=== PATIENT | male | born 1940 | race Caucasian/White ===

== ENCOUNTER → 2024-03-02 14:49 | Outpatient (REF) | payer MEDICARE, BC, SELFPAY | LOC: RCS 14:49 | PROVIDERS: ATTENDING PHYSICIAN Internal Medicine Cardiovascular Disease; FAMILY PHYSICIAN Internal Medicine; OTHER PHYSICIAN Internal Medicine Clinical Cardiac Electrophysiology | DX: I34.0 Nonrheumatic mitral (valve) insufficiency (principal) | CPT/HCPCS: 93306 ==

== ENCOUNTER → 2024-03-23 11:01 | Outpatient (REF) | payer MEDICARE, BC, SELFPAY | LOC: RAD 11:01 | PROVIDERS: ATTENDING PHYSICIAN Specialist; FAMILY PHYSICIAN Internal Medicine | DX: R63.4 Abnormal weight loss (principal); R19.4 Change in bowel habit | CPT/HCPCS: 74177; Q9967 ==

== ENCOUNTER → 2025-04-29 12:56 | Outpatient (REF) | payer MEDICARE, BC, SELFPAY | LOC: RCS 12:56 | PROVIDERS: ATTENDING PHYSICIAN Internal Medicine Clinical Cardiac Electrophysiology; FAMILY PHYSICIAN Internal Medicine; OTHER PHYSICIAN Urology; REFERRING PHYSICIAN Internal Medicine Cardiovascular Disease | DX: I44.0 Atrioventricular block, first degree (principal); R97.20 Elevated prostate specific antigen [PSA] | CPT/HCPCS: 71046; 93306 ==